=== PATIENT | male | born 1945 | race Two or more races ===

== ENCOUNTER 2018-10-05 03:05 | Emergency (ER) | payer MEDICARE, MEDICAID ==
[~2018-10-05] VITALS: Ht 172.7 cm; Wt 75.3 kg
[2018-10-05] MEDS ORDERED: SIMETHICONE 80 MG TAB.CHEW ONE (03:42)
[2018-10-05] MEDS ORDERED: SIMETHICONE 80 MG TAB.CHEW PO ONE (04:00)
[2018-10-05 04:18] VITALS: BP 122/74
== END 2018-10-05 04:00 | disposition home or self-care (01) ==
LOC: ER 03:07
DX: T83.098A Other mechanical complication of other urinary catheter, initial encounter (principal); R31.9 Hematuria, unspecified; Z98.890 Other specified postprocedural states; Z46.6 Encounter for fitting and adjustment of urinary device
CPT/HCPCS: A4217

== ENCOUNTER 2021-01-13 12:42 | Outpatient (CLI) | payer MEDICARE, OTHER ==
[2021-01-13] MEDS ORDERED: LIDOCAINE 2% JEL 5 ML TUBE ONE (12:56)
[2021-01-13] MEDS ORDERED: CADEXOMER IODINE UD 5 GM TUBE ONE (13:37)
== END 2021-01-13 23:59 | disposition home or self-care (01) ==
LOC: WOU 12:42
PROVIDERS: ATTEND Specialist
DX: S61.231D Puncture wound without foreign body of left index finger without damage to nail, subsequent encounter (principal); W29.8XXD Contact with other powered hand tools and household machinery, subsequent encounter; L03.012 Cellulitis of left finger; Z87.891 Personal history of nicotine dependence
CPT/HCPCS: 87070; 87075; G0463